=== PATIENT | female | born 1945 | race Caucasian/White ===

== ENCOUNTER 2016-08-23 07:09 | Day surgery (SDC) | payer MEDICARE, OTHER ==
[~2016-08-23] VITALS: Ht 149.9 cm; Wt 49.5 kg
[~2016-08-23 07:09] MED LIST: AMLO-512 PO; CILO2.5OS OD; DICL1OS OD; FENO145T PO; FentaNYL CITRATE-PF 100 MCG/2 ML VIAL IVP ONE; HYDR25TA PO; METF500T4 PO; MIDAZOLAM HCL 2 MG/2 ML VIAL IVP ONE; PREDAOS OD; SITA100 PO; TELM40 PO
[2016-08-23] MEDS ORDERED: RINGERS SOLUTION,LACTATED 500 ML IV ONE ×2 (07:16→07:30)
[2016-08-23] MEDS ORDERED: DICLOFENAC SODIUM 0.1% 2.5 ML OPHTHALMIC SOLUTION ONE (07:17)
[2016-08-23] MEDS ORDERED: GATIFLOXACIN 0.5% 2.5 ML OPHTHALMIC SOLUTION ONE (07:17)
[2016-08-23] MEDS ORDERED: TETRACAINE HCL 0.5% 2 ML OPHTHALMIC SOLUTION ONE (07:17)
[2016-08-23] MEDS ORDERED: PHENYLEPHRINE HCL 2.5% 2 ML OPHTHALMIC SOLUTION ONE (07:18)
[2016-08-23] MEDS ORDERED: TROPICAMIDE 1% 2 ML OPHTHALMIC SOLUTION ONE (07:18)
[2016-08-23] MEDS ORDERED: CYCLOPENTOLATE HCL 2% 2 ML OPHTHALMIC SOLUTION ONE (07:18)
[2016-08-23] MEDS ORDERED: ACETAMINOPHEN 325 MG TABLET PO PRN (07:45)
[2016-08-23] MEDS ORDERED: TETRACAINE HCL 0.5% 2 ML OPHTHALMIC SOLUTION OS ONE (07:45)
[2016-08-23 07:57] LABS: GLUCOSE,POINT OF CARE 132 MG/DL (70-110)
[2016-08-23] MEDS: PHENYLEPHRINE HCL 2.5% 2 ML OPHTHALMIC SOLUTION OS SCH ×3 (07:57→08:09)
[2016-08-23] MEDS: CYCLOPENTOLATE HCL 2% 2 ML OPHTHALMIC SOLUTION OS SCH ×3 (07:58→08:09)
[2016-08-23] MEDS: DICLOFENAC SODIUM 0.1% 2.5 ML OPHTHALMIC SOLUTION OS SCH ×3 (07:59→08:21)
[2016-08-23] MEDS: GATIFLOXACIN 0.5% 2.5 ML OPHTHALMIC SOLUTION OS SCH ×3 (07:59→08:22)
[2016-08-23] MEDS ORDERED: AcetaZOLAMIDE 250 MG TABLET PO ONE (09:45)
[2016-08-23] MEDS ORDERED: EPINEPHrine 1:1,000 [1 MG/ML] AMP IVP ONE (10:00)
[2016-08-23] MEDS ORDERED: TETRACAINE HCL VISCOUS 0.5% 0.6 ML OPHTHALMIC SOLUTION OU ONE (10:00)
[2016-08-23] MEDS ORDERED: TETRACAINE HCL 0.5% 2 ML OPHTHALMIC SOLUTION OU ONE (10:00)
[2016-08-23] MEDS ORDERED: LIDOCAINE HCL/PF 1% 2 ML VIAL IM ONE (10:00)
[2016-08-23] MEDS ORDERED: POVIDONE-IODINE 10% 15 ML SOLUTION UD TP ONE (10:00)
[2016-08-23] MEDS ORDERED: HYALURONATE SOD/CHONDROITIN SOD 0.5 ML VIAL IO ONE (10:00)
[2016-08-23] MEDS ORDERED: BRIMONIDINE TARTRATE 0.15% 5 ML OPHTHALMIC SOLUTION OU ONE (10:00)
[2016-08-23] MEDS ORDERED: MOXIFLOXACIN HCL 0.5% 3 ML OPHTHALMIC SOLUTION OU ONE (10:00)
[2016-08-23] MEDS ORDERED: HYALURONATE SODIUM 12 MG/ML 0.8 ML SYRINGE IO ONE (10:00)
[2016-08-23] MEDS ORDERED: AcetaZOLAMIDE 250 MG TABLET ONE (10:30)
== END 2016-08-23 11:05 | disposition home or self-care (01) ==
LOC: SURGERY 07:09
PROVIDERS: ATTEND Ophthalmology
DX: E11.36 Type 2 diabetes mellitus with diabetic cataract (principal); H26.9 Unspecified cataract; I10 Essential (primary) hypertension; Z88.0 Allergy status to penicillin; Z88.8 Allergy status to other drugs, medicaments and biological substances; Z98.890 Other specified postprocedural states
CPT/HCPCS: 66984; 82962; C1780; J2250; J3010; J7120; J0171; J3490